=== PATIENT | female | born 1965 | race Caucasian/White ===

== ENCOUNTER 2018-02-21 00:56 | Emergency (ER) | payer BC ==
[2018-02-21] MEDS ORDERED: TORAdol 30 mg Injection IM ONE (01:23)
[2018-02-21] MEDS ORDERED: Adacel Vial IM ONE ×2 (01:23→01:36)
[2018-02-21 01:28] VITALS: BP 162/93; PULSE 69; O2SAT 99
--- NOTE | 2018-02-21 01:29 | ERPHSYRPT ---
- History of Present Illness Time Seen by Provider: 02/21/18 01:23 Source: patient Exam Limitations: no limitations Physician History: The patient is a 52-year-old female with her daughter complaining that she fell when she missed a step at a restaurant in [place] earlier this evening. She hurt her right foot and her left knee. She then went to watch a play and came back to the restaurant to tell him about the fall. The restaurant wanted her to be seen at a local [place] ER but the patient drove to her home town to be in the ER here. She did not hit her head. She did not lose consciousness. Her past medical history is unremarkable. Her last tetanus vaccination was more than 5 years ago. Occurred: hours ago (6) Reason for Fall: tripped, fell from standing pos Injuries/Pain Location: lower extremity (right foot, left knee) Loss of Consciousness: no loss of consciousness Quality: aching Severity of Pain-Max: moderate Severity of Pain-Current: moderate Modifying Factors: Improves With: pain medication (tylenol) Associated Symptoms (Fall): trouble walking - Review of Systems Constitutional: No Fever, No Chills Eyes: No Symptoms Ears, Nose, & Throat: No Symptoms Respiratory: No Cough, No Dyspnea Cardiac: No Chest Pain, No Edema, No Syncope Abdominal/Gastrointestinal: No Abdominal Pain, No Nausea, No Vomiting, No Diarrhea Genitourinary Symptoms: No Dysuria Musculoskeletal: Fall, Injury Skin: No Rash Neurological: No Dizziness, No Focal Weakness, No Sensory Changes Psychological: No Symptoms Endocrine: No Symptoms Hematologic/Lymphatic: No Symptoms Immunological/Allergic: No Symptoms All Other Systems: Reviewed and Negative - Nursing Vital Signs Nursing Vital Signs: Initial Vital Signs Temperature 98.0 F 02/21/18 01:16 Pulse Rate 69 02/21/18 01:16 Respiratory Rate 16 02/21/18 01:16 Blood Pressure 162/93 02/21/18 01:16 O2 Sat by Pulse Oximetry 99 02/21/18 01:16 Pain Scale Pain Intensity 7 - [place] Coma Score Best Eye Response ([place]): (4) open spontaneously Best Verbal Response ([place]): (5) oriented Best Motor Response ([place]): (6) obeys commands [place] Total: 15 - Physical Exam General Appearance: no apparent distress, alert Head Injury: no evidence of injury Eye Exam: PERRL/EOMI ENT Exam: airway nml Neck Exam: normal inspection, No tenderness Respiratory/Chest Exam: normal breath sounds, No chest tenderness, No respiratory distress Cardiovascular Exam: normal heart sounds, regular rate/rhythm Gastrointestinal Exam: soft, No tenderness, No distention, No guarding, No ecchymosis Rectal Exam: not done Back Exam: normal inspection, No vertebral tenderness Extremity Exam: normal range of motion, pelvis stable, evidence of injury (left knee; right foot), swelling (right foot; left knee), tenderness (right foot; left knee), No deformities Neurologic Exam: alert, oriented x 3, cooperative, sensation nml, No motor deficits Skin Exam: abrasion (left knee), ecchymosis (right foot) SpO2 Interpretation: normal - Radiology Exams Right Foot X-ray Interpretation: Interpreted by me, Negative, No Fracture Left Knee X-ray Interpretation: Interpreted by me, Negative, No Fracture, Other (arthritis ) Ordered Tests: Active Orders 24 hr Category Date Time Status Cold Application STAT Care 02/21/18 01:30 Active FOOT (MINIMUM 3 VIEWS) Stat Exams 02/21/18 01:23 Ordered KNEE (3 VIEWS) Stat Exams 02/21/18 01:24 Ordered Medication Summary Discontinued Medications Generic Name Dose Route Start Last Admin Trade Name Freq PRN Reason Stop Dose Admin Diphtheria/Tetanus/Acell Pertussis 0.5 ml 02/21/18 01:23 Adacel Vial IM 02/21/18 01:24 .ONCE ONE Diphtheria/Tetanus/Acell Pertussis Confirm 02/21/18 01:36 Adacel Vial Administered 02/21/18 01:37 Dose 0.5 ml IM .STK-MED ONE Ketorolac Tromethamine 60 mg 02/21/18 01:23 Toradol 30 Mg Injection IM 02/21/18 01:24 STAT ONE Ketorolac Tromethamine Confirm 02/21/18 01:35 Toradol 30 Mg Injection Administered 02/21/18 01:36 Dose 60 mg .ROUTE .STK-MED ONE - Progress Progress: improved Counseled pt/family regarding: rad results - Departure Time of Disposition: 01:48 Departure Disposition: Home Clinical Impression: Multiple contusions Condition: Stable Critical Care Time: No Referrals: CHARLI DE LA O [Primary Care Provider] - Additional Instructions: You have a contusion of your right foot and left knee. You were given Toradol 60 mg by IM and a tetanus vaccination in the ER. Continue to ice the foot and knee for 15 minutes 3 times a day for the next 2 or 3 days. Take Tylenol and ibuprofen as needed. Follow-up next week if the condition has not improved.
[2018-02-21] MEDS ORDERED: TORAdol 30 mg Injection ONE (01:35)
--- NOTE | 2018-02-21 08:57 | XRAY ---
Indication: Pain following fall. Comparison: None 3 views of the left knee demonstrates mild/moderate tricompartmental degenerative changes, small nonspecific suprapatellar effusion, and anterior soft tissue swelling. No other bony, articular, or soft tissue abnormalities.
--- NOTE | 2018-02-21 08:59 | XRAY ---
Indication: Pain following fall. Comparison: None 3 nonweightbearing views of the right foot demonstrates small heel spurs and mild soft tissue swelling adjacent to the 5th MTP. No other bony, articular, or soft tissue abnormalities.
== END 2018-02-21 02:14 | disposition home or self-care (01) ==
LOC: ED 00:56
DX: S90.31XA Contusion of right foot, initial encounter (principal); S80.02XA Contusion of left knee, initial encounter; M79.671 Pain in right foot; M25.562 Pain in left knee; W17.89XA Other fall from one level to another, initial encounter; Y93.9 Activity, unspecified; Y92.511 Restaurant or cafe as the place of occurrence of the external cause
CPT/HCPCS: 73562; 73630; 90471; 90715; 96372; 99283; 99284; J1885

== ENCOUNTER 2020-03-23 12:26 | Emergency (ER) | payer BC ==
[2020-03-23 12:46] VITALS: O2SAT 98
[2020-03-23] MEDS ORDERED: TYLENOL 325 MG PO STA (12:48)
[2020-03-23] MEDS ORDERED: TYLENOL 325 MG ONE (12:51)
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
[2020-03-23 13:30] VITALS: BP 159/89
[2020-03-23 13:53] VITALS: PULSE 86
== END 2020-03-23 14:00 | disposition home or self-care (01) ==
LOC: ED 12:26
DX: V89.2XXA Person injured in unspecified motor-vehicle accident, traffic, initial encounter (principal); Y93.89 Activity, other specified; Y92.488 Other paved roadways as the place of occurrence of the external cause; I10 Essential (primary) hypertension
CPT/HCPCS: 71045; 73610; 99284; A9270-GY

== ENCOUNTER 2021-03-31 15:47 | Emergency (ER) | payer BC ==
--- NOTE | 2021-03-31 15:50 | ERPHSYRPT ---
- History of Present Illness Time Seen by Provider: 03/31/21 15:49 Historian: patient, family Exam Limitations: no limitations Physician History: This is a 56-year-old white female who has a history of hypertension and presents with 2-day history of abdominal pain that initially was in her back and left upper quadrant with radiation to her left shoulder. She had associated nausea and vomiting initially. She then sought medical evaluation yesterday by [facility]. They had drawn some labs and did a plain x-ray which did not show anything acute. They provided the patient with a Zofran prescription which did help prevent vomiting and lessened her nausea but the nausea is still present. Patient has a decreased appetite. Today, her pain is primarily on the right side of her abdomen mostly in the right upper quadrant with radiation into the right flank. Patient has never had anything like this before. She denies chest pain and she denies shortness of breath. Patient states there is a dull achy pain that is constant. With deep breath or palpation the pain in the same area becomes sharp. Patient still has her gallbladder in place as well as her append ix. She has not had any hematemesis. She has had no dysuria or hematuria. She has not had any bright red blood per rectum or any dark tarry stools. Timing/Duration: day(s) (2), worse Activities at Onset: none Quality: aching, sharpness Abdominal Pain Onset Location: RUQ Pain Radiation: flank (Right) Severity of Pain-Max: moderate Severity of Pain-Current: moderate Associated Symptoms: loss of appetite, nausea, vomiting, No chest pain, No shortness of breath Previous symptoms: no prior history, recently seen (At urgent care center), recently treated (At urgent care center) Allergies/Adverse Reactions: No Known Drug Allergies Allergy (Verified 03/23/20 12:46) Home Medications: hydroCHLOROthiazide [Hydrochlorothiazide] 12.5 mg PO DAILY 03/23/20 [History] Losartan/Hydrochlorothiazide [Losartan-Hctz 50-12.5 mg Tab] 1 each PO DAILY 03/31/21 [History] Ondansetron ODT 4 MG [Zofran Odt 4 mg] 4 mg PO STAT 03/31/21 [History] Hx Tetanus, Diphtheria Vaccination/Date Given: Yes Hx Influenza Vaccination/Date Given: Yes Hx Pneumococcal Vaccination/Date Given: No Travel Risk - International Travel Have you traveled outside of the country in past 3 weeks: No - Coronavirus Screening Are you exhibiting any of the following symptoms?: No Close contact with a COVID-19 positive Pt in past 14-21 Days: No - Review of Systems Constitutional: No Symptoms Eyes: No Symptoms Ears, Nose, & Throat: No Symptoms Respiratory: No Symptoms Cardiac: No Symptoms Abdominal/Gastrointestinal: Abdominal Pain, Nausea, Vomiting Genitourinary Symptoms: No Symptoms Musculoskeletal: No Symptoms Skin: No Symptoms Neurological: No Symptoms Psychological: No Symptoms Endocrine: No Symptoms Hematologic/Lymphatic: No Symptoms Immunological/Allergic: No Symptoms All Other Systems: Reviewed and Negative - Past Medical History Pertinent Past Medical History: Yes Cardiac History: Hypertension Female Reproductive Disorders: Other Other Medical History: endometrial CA - Past Surgical History Past Surgical History: Yes Gastrointestinal: Exploratory Laparoscopy Female Surgical History: Hysterectomy - Social History Smoking Status: Never smoker Exposure to second hand smoke: No Drug Use: none Patient Lives Alone: No - Nursing Vital Signs Nursing Vital Signs: Initial Vital Signs Temperature 97.9 F 03/31/21 15:55 Pulse Rate 83 03/31/21 15:55 Respiratory Rate 19 03/31/21 15:55 Blood Pressure 139/78 03/31/21 15:55 O2 Sat by Pulse Oximetry 98 03/31/21 15:55 Pain Scale Pain Intensity 4 - Physical Exam General Appearance: no apparent distress, alert, anxiety Eye Exam: PERRL/EOMI, eyes nml inspection Ears, Nose, Throat Exam: normal ENT inspection, moist mucous membranes Neck Exam: normal inspection, non-tender, supple, full range of motion Respiratory Exam: normal breath sounds, lungs clear, airway intact, No chest tenderness, No respiratory distress Cardiovascular Exam: regular rate/rhythm, normal heart sounds, normal peripheral pulses Gastrointestinal/Abdomen Exam: soft, normal bowel sounds, tenderness (Right upper quadrant), guarding (Right upper quadrant), No rebound Pelvic Exam: not done Rectal Exam: not done Back Exam: normal inspection, normal range of motion, CVA tenderness (Right side), No vertebral tenderness Extremity Exam: normal inspection, normal range of motion, pelvis stable Neurologic Exam: alert, oriented x 3, cooperative, patient support specialist II-XII nml as tested, normal mood/affect, nml cerebellar function, nml station & gait, sensation nml Skin Exam: normal color, warm, dry Lymphatic Exam: No adenopathy SpO2 Interpretation: normal O2 Delivery: Room Air - Course Nursing assessment & vital signs reviewed: Yes Ordered Tests: Active Orders 24 hr Category Date Time Status IV Insertion STAT Care 03/31/21 16:06 Active ABDOMEN AND PELVIS W/0 CONTRAS [CT] Stat Exams 03/31/21 16:26 Completed AMYLASE Stat Lab 03/31/21 16:49 Completed BLOOD CULTURE Stat Lab 03/31/21 16:49 Received CBC W DIFF Stat Lab 03/31/21 16:49 Completed CMP Stat Lab 03/31/21 16:49 Completed CULTURE,URINE Stat Lab 03/31/21 16:51 Received LIPASE Stat Lab 03/31/21 16:49 Completed Lactic Acid Stat Lab 03/31/21 16:49 Completed UA W/RFX UR CULTURE Stat Lab 03/31/21 16:51 Completed Medication Summary Generic Name Dose Route Start Last Admin Trade Name Freq PRN Reason Stop Dose Admin Levofloxacin/Dextrose 500 mg in 100 mls @ 100 mls/hr 03/31/21 17:53 03/31/21 18:17 Levofloxacin 500mg/100ml D5w IV 03/31/21 18:52 100 mls/hr STAT STA 100 mls/hr Administration Discontinued Medications Generic Name Dose Route Start Last Admin Trade Name Freq PRN Reason Stop Dose Admin Hydromorphone HCl 1 mg 03/31/21 16:06 03/31/21 16:21 Hydromorphone 1 Mg/Ml Injection IV 03/31/21 16:07 1 mg STAT ONE Administration Hydromorphone HCl Confirm 03/31/21 16:20 Hydromorphone 1 Mg/Ml Injection Administered 03/31/21 16:21 Dose 1 mg .ROUTE .STK-MED ONE Sodium Chloride 1,000 mls @ 999 mls/hr 03/31/21 16:11 03/31/21 18:24 Sodium Chloride 0.9% 1000 Ml IV 03/31/21 17:11 Infused .Q1H1M STA Infusion Sodium Chloride Confirm 03/31/21 16:20 Sodium Chloride 0.9% 1000 Ml Administered 03/31/21 16:21 Dose 1,000 mls @ ud .ROUTE .STK-MED ONE Levofloxacin/Dextrose Confirm 03/31/21 18:15 Levofloxacin 500mg/100ml D5w Administered 03/31/21 18:16 Dose 500 mg in 100 mls @ ud IV .STK-MED ONE Ondansetron HCl 4 mg 03/31/21 16:06 03/31/21 16:21 Zofran 4 Mg/2 Ml Vial IV 03/31/21 16:07 4 mg STAT ONE Administration Ondansetron HCl Confirm 03/31/21 16:20 Zofran 4 Mg/2 Ml Vial Administered 03/31/21 16:21 Dose 4 mg .ROUTE .STK-MED ONE Lab/Rad Data: Laboratory Result Diagrams 03/31/21 16:49 03/31/21 16:49 Laboratory Results 03/31/21 03/31/21 03/31/21 Range/Units 16:51 16:49 16:49 WBC (4.0-10.5) K/mm3 RBC (4.1-5.4) M/mm3 Hgb (12.0-16.0) gm/dl Hct (35-47) % MCV (78-100) fl MCH (26-32) pg MCHC (32-36) g/dl RDW (11.5-14.0) % Plt Count (150-450) K/mm3 MPV (7.5-11.0) fl Gran % (36.0-66.0) % Eos # (Auto) (0-0.5) Absolute Lymphs (auto) (1.0-4.6) Absolute Monos (auto) (0.0-1.3) Lymphocytes % (24.0-44.0) % Monocytes % (0.0-12.0) % Eosinophils % (0.00-5.0) % Basophils % (0.0-0.4) % Absolute Granulocytes (1.4-6.9) Basophils # (0-0.4) Sodium 134 L (137-145) mmol/L Potassium 3.7 (3.5-5.1) mmol/L Chloride 99 (98-107) mmol/L Carbon Dioxide 26 (22-30) mmol/L Anion Gap 12.6 (5-15) MEQ/L BUN 15 (7-17) mg/dL Creatinine 0.95 (0.52-1.04) mg/dL Estimated GFR > 60.0 ML/MIN Glucose 100 (74-106) mg/dL Lactic Acid 0.9 (0.4-2.0) Calcium 8.7 (8.4-10.2) mg/dL Total Bilirubin 2.50 H (0.2-1.3) mg/dL AST 23 (14-36) U/L ALT 16 (0-35) U/L Alkaline Phosphatase 86 (38-126) U/L Serum Total Protein 7.0 (6.3-8.2) g/dL Albumin 4.1 (3.5-5.0) g/dL Amylase 53 (30-110) U/L Lipase 68 (23-300) U/L Urine Color YELLOW (YELLOW) Urine Appearance SLIGHTLY CLOUDY (CLEAR) Urine pH 5.0 (5-6) Ur Specific [place] 1.026 (1.005-1.025) Urine Protein 30 (Negative) Urine Ketones MODERATE (NEGATIVE) Urine Blood MODERATE (0-5) [place]dom[place]/ul Urine Nitrite NEGATIVE (NEGATIVE) Urine Bilirubin NEGATIVE (NEGATIVE) Urine Urobilinogen 2 (0-1) mg/dL Ur Leukocyte Esterase LARGE (NEGATIVE) Urine WBC (Auto) 26-50 (0-5) /HPF Urine RBC (Auto) 3-5 (0-2) /HPF U Epithel Cells (Auto) RARE (FEW) /HPF Urine Bacteria (Auto) NONE (NEGATIVE) /HPF Amorphous Crystals FEW (NEGATIVE) /HPF Urine Mucus (Auto) SLIGHT (NEGATIVE) /HPF Urine Culture Reflexed YES (NO) Urine Glucose NEGATIVE (NEGATIVE) mg/dL 03/31/21 Range/Units 16:49 WBC 12.6 H (4.0-10.5) K/mm3 RBC 3.99 L (4.1-5.4) M/mm3 Hgb 12.2 (12.0-16.0) gm/dl Hct 38.5 (35-47) % MCV 96.5 (78-100) fl MCH 30.6 (26-32) pg MCHC 31.7 L (32-36) g/dl RDW 13.0 (11.5-14.0) % Plt Count 226 (150-450) K/mm3 MPV 9.5 (7.5-11.0) fl Gran % 84.0 H (36.0-66.0) % Eos # (Auto) 0.01 (0-0.5) Absolute Lymphs (auto) 0.99 L (1.0-4.6) Absolute Monos (auto) 0.98 (0.0-1.3) Lymphocytes % 7.9 L (24.0-44.0) % Monocytes % 7.8 (0.0-12.0) % Eosinophils % 0.1 (0.00-5.0) % Basophils % 0.2 (0.0-0.4) % Absolute Granulocytes 10.60 H (1.4-6.9) Basophils # 0.02 (0-0.4) Sodium (137-145) mmol/L Potassium (3.5-5.1) mmol/L Chloride (98-107) mmol/L Carbon Dioxide (22-30) mmol/L Anion Gap (5-15) MEQ/L BUN (7-17) mg/dL Creatinine (0.52-1.04) mg/dL Estimated GFR ML/MIN Glucose (74-106) mg/dL Lactic Acid (0.4-2.0) Calcium (8.4-10.2) mg/dL Total Bilirubin (0.2-1.3) mg/dL AST (14-36) U/L ALT (0-35) U/L Alkaline Phosphatase (38-126) U/L Serum Total Protein (6.3-8.2) g/dL Albumin (3.5-5.0) g/dL Amylase (30-110) U/L Lipase (23-300) U/L Urine Color (YELLOW) Urine Appearance (CLEAR) Urine pH (5-6) Ur Specific [place] (1.005-1.025) Urine Protein (Negative) Urine Ketones (NEGATIVE) Urine Blood (0-5) Baldomero/ul Urine Nitrite (NEGATIVE) Urine Bilirubin (NEGATIVE) Urine Urobilinogen (0-1) mg/dL Ur Leukocyte Esterase (NEGATIVE) Urine WBC (Auto) (0-5) /HPF Urine RBC (Auto) (0-2) /HPF U Epithel Cells (Auto) (FEW) /HPF Urine Bacteria (Auto) (NEGATIVE) /HPF Amorphous Crystals (NEGATIVE) /HPF Urine Mucus (Auto) (NEGATIVE) /HPF Urine Culture Reflexed (NO) Urine Glucose (NEGATIVE) mg/dL - Progress Progress: improved, pain not gone completely, re-examined Progress Note: 06/18/21 17:34 CAT scan of the abdomen pelvis without contrast shows abnormally distended gallbladder with wall thickening and pericholecystic fluid. Rule out acalculous cholecystitis. 03/31/21 18:32 Medical decision making: This patient has an elevated white count that is essentially the same as a white blood cell count that was performed over 24 hours ago. After pain medicine and antiemetics, the patient states she is feeling much better. Patient has an elevated bilirubin at 2.5 but the remainder of her liver function tests and amylase and lipase are normal. We had a discussion and came to a joint decision of providing the patient with oral antibiotics, oral pain medicine and antiemetic prescription and allow her to be discharged to home with a follow-up ultrasound of the gallbladder to be performed on 04/03/2021. Patient was told to return to the emergency department if her symptoms worsen. Counseled pt/family regarding: lab results, diagnosis, need for follow-up, rad results - Departure Departure Disposition: Home Clinical Impression: Acalculous cholecystitis Condition: Stable Critical Care Time: No Referrals: CHARLI DE LA O [Primary Care Provider] - Additional Instructions: Drink plenty of clear liquids. Avoid fatty greasy spicy foods. Take your medications as prescribed. Return to the emergency department if symptoms worsen. Return to the hospital radiology department on 04/03/2021 to obtain a gallbladder ultrasound. Cancel your gallbladder ultrasound that was ordered for 04/05/2021. Prescriptions: Hydrocodone/APAP 5/325 [[place] 5/325 mg] 1 each PO Q6H PRN PRN #9 tablet MDD 3 PRN Reason: Pain Ondansetron ODT 4 MG [Zofran Odt 4 mg] 4 mg PO Q6H PRN PRN #10 tab.rapdis PRN Reason: Vomiting Ciprofloxacin [Cipro 500 MG] 500 mg PO BID #14 tablet
[2021-03-31] MEDS ORDERED: Hydromorphone 1 mg/ml Injection IV ONE (16:06)
[2021-03-31] MEDS ORDERED: Zofran 4 MG/2 ML VIAL IV ONE (16:06)
[2021-03-31] MEDS ORDERED: Sodium Chloride 0.9% 1000 ML 1,000 ML IV STA (16:11)
[2021-03-31] MEDS ORDERED: Sodium Chloride 0.9% 1000 ML 1,000 ML ONE (16:20)
[2021-03-31] MEDS ORDERED: Zofran 4 MG/2 ML VIAL ONE (16:20)
[2021-03-31] MEDS ORDERED: Hydromorphone 1 mg/ml Injection ONE (16:20)
--- NOTE | 2021-03-31 17:06 | XRAY ---
Indication: Right upper quadrant pain. Nausea and vomiting. Multiple contiguous axial images obtained through the abdomen and pelvis without contrast. Comparison: None Lung bases demonstrate minimal dependent atelectasis. No infiltrate or effusion. Heart not enlarged. Noncontrasted stomach and bowel loops appear nonobstructed. Normal appendix. Abnormally distended gallbladder with wall thickening and pericholecystic fluid but no gallstones. Acalculous cholecystitis is of primary concern. Tiny pelvic free fluid but no walled off fluid collection or free air. Previous hysterectomy. Remaining liver, pancreas, spleen, adrenal glands, kidneys, ureters, and bladder are unremarkable for noncontrast exam. Minimal aortoiliac calcifications without AAA. Osseous structures intact. Impression: Abnormal distended gallbladder with wall thickening and pericholecystic/pelvic fluid. Rule out acalculous cholecystitis.
[2021-03-31 17:20] LABS: ALBUMIN 4.1 g/dL (3.5-5.0); ALKALINE PHOSPHATASE 86 U/L (38-126); AMYLASE 53 U/L (30-110); ANION GAP 12.6 MEQ/L (5-15); BLOOD UREA NITROGEN 15 mg/dL (7-17); CHLORIDE 99 mmol/L (98-107); Calcium 8.7 mg/dL (8.4-10.2); Carbon Dioxide 26 mmol/L (22-30); Creatinine 1 0.95 mg/dL (0.52-1.04); EST GLOMERULAR FILTRATION RATE > 60.0 ML/MIN; Glucose 100 mg/dL (74-106); LIPASE 68 U/L (23-300); Potassium 3.7 mmol/L (3.5-5.1); SGOT/AST 23 U/L (14-36); SGPT/ALT 16 U/L (0-35); SODIUM 134 mmol/L (137-145)
[2021-03-31 17:33] LABS: Amourphous Crystal FEW /HPF (NEGATIVE); Appearance SLIGHTLY CLOUDY (CLEAR); Bilirubin NEGATIVE (NEGATIVE); Blood MODERATE Ery/ul (0-5); Epithelial Cells RARE /HPF (FEW); Glucose NEGATIVE (NEGATIVE); Ketones MODERATE (NEGATIVE); Leukocyte Esterase LARGE (NEGATIVE); Mucus SLIGHT /HPF (NEGATIVE); Nitrite NEGATIVE (NEGATIVE); Protein,Urine Dip 30 (Negative); Specific Gravity 1.026 (1.005-1.025); Urobilinogen 2 mg/dL (0-1); WBC 26-50 /HPF (0-5)
[2021-03-31 17:52] LABS: BASOPHIL % 0.2 % (0.0-0.4); Basophil (Absolute #) 0.02 (0-0.4); Eosinophil % 0.1 % (0.00-5.0); Eosinophil (Absolute #) 0.01 (0-0.5); Hematocrit 38.5 % (35-47); Hemoglobin 12.2 gm/dl (12.0-16.0); Lymphocyte (Absolute #) 0.99 (1.0-4.6); Lymphocytes % 7.9 % (24.0-44.0); Mean Cell Volume 96.5 fl (78-100); Mean Corpuscular Hemoglobin 30.6 pg (26-32); Mean Corpuscular Hgb Concent. 31.7 g/dl (32-36); Mean Platelet Volume 9.5 fl (7.5-11.0); Monocyte (Absolute #) 0.98 (0.0-1.3); Monocytes % 7.8 % (0.0-12.0); Platelet Count 226 K/mm3 (150-450); Red Blood Count 3.99 M/mm3 (4.1-5.4); White Blood Count 12.6 K/mm3 (4.0-10.5)
[2021-03-31] MEDS ORDERED: Levofloxacin 500MG/100ML D5W 500 MG/100 ML BAG IV STA (17:53)
[2021-03-31] MEDS ORDERED: Levofloxacin 500MG/100ML D5W 500 MG/100 ML BAG IV ONE (18:15)
[2021-03-31 19:31] VITALS: BP 116/75; PULSE 97; O2SAT 98
== END 2021-03-31 19:31 | disposition home or self-care (01) ==
LOC: ED 15:47
DX: K81.9 Cholecystitis, unspecified (principal); Z79.899 Other long term (current) drug therapy
CPT/HCPCS: 36000; 36415; 74176; 80053; 81001; 82150; 83605; 83690; 85025; 87040; 87086; 96360; 96365; 96374; 96375; 99284; J1170; J1956; J2405

== ENCOUNTER 2021-04-03 09:29 | Observation (INO) | payer BC ==
[2021-04-03] MEDS ORDERED: Hydromorphone 1 mg/ml Injection IV PRN (11:39)
[2021-04-03] MEDS ORDERED: Zofran 4 MG/2 ML VIAL IV PRN (11:39)
[2021-04-03 12:28] LABS: BASOPHIL % 0.4 % (0.0-0.4); Basophil (Absolute #) 0.03 (0-0.4); Eosinophil % 0.7 % (0.00-5.0); Eosinophil (Absolute #) 0.05 (0-0.5); Hematocrit 37.2 % (35-47); Lymphocyte (Absolute #) 1.03 (1.0-4.6); Lymphocytes % 15.3 % (24.0-44.0); Mean Cell Volume 94.9 fl (78-100); Mean Corpuscular Hemoglobin 30.6 pg (26-32); Mean Corpuscular Hgb Concent. 32.3 g/dl (32-36); Mean Platelet Volume 9.7 fl (7.5-11.0); Monocyte (Absolute #) 0.54 (0.0-1.3); Neutrophil % 75.6 % (36.0-66.0); Platelet Count 298 K/mm3 (150-450); Red Blood Count 3.92 M/mm3 (4.1-5.4); Red Cell Distribution Width 12.7 % (11.5-14.0); White Blood Count 6.8 K/mm3 (4.0-10.5)
[2021-04-03 12:43] LABS: ALBUMIN 4.2 g/dL (3.5-5.0); ALKALINE PHOSPHATASE 131 U/L (38-126); ANION GAP 11.3 MEQ/L (5-15); BLOOD UREA NITROGEN 12 mg/dL (7-17); CHLORIDE 98 mmol/L (98-107); Calcium 9.4 mg/dL (8.4-10.2); Carbon Dioxide 30 mmol/L (22-30); Creatinine 1 0.97 mg/dL (0.52-1.04); EST GLOMERULAR FILTRATION RATE > 60.0 ML/MIN; Glucose 97 mg/dL (74-106); LIPASE 93 U/L (23-300); Potassium 3.3 mmol/L (3.5-5.1); SGOT/AST 35 U/L (14-36); SGPT/ALT 32 U/L (0-35); SODIUM 136 mmol/L (137-145); Total Protein 7.5 g/dL (6.3-8.2)
[2021-04-03] MEDS: Zosyn 3.375 GM Vial 3.375 GM in Sodium Chloride 100ML MINI-BAG PLUS 100 ML IV SCH ×3 (12:52→23:48)
[2021-04-03] MEDS: Sodium Chloride 0.9% W/ 20 mEq KCl/LITER 1,000 ML IV SCH (12:52)
--- NOTE | 2021-04-03 13:04 | PCM.HP ---
History of Present Illness - Chief Complaint Chief Complaint: acute cholecystitis History of Present Illness: is a 56 year old female who was in quick care 4 days ago, then the ER 3 days ago. She has been experiencing upper abdominal pain with radiation through to her back and nausea and vomiting for the last 5-6 days, she has not been febrile but her pain has been severe. she had a ct scan in the ER with thickening of the gallbladder wall and stones, this morning ultrasound sugge stive of cholecystitis. She was direct admitted after review of labs with elevated white count and elevation of her bilirubin. she has a history of hypertension but no cardiac history. - Review of Systems Constitutional: No Fever, No Chills Abdominal/Gastrointestinal: Abdominal Pain, Nausea, Vomiting Genitourinary Symptoms: No Dysuria Musculoskeletal: Back Pain Skin: No Rash All Other Systems: Reviewed and Negative Medications & Allergies Home Medications: Home Medication List hydroCHLOROthiazide [Hydrochlorothiazide] 12.5 mg PO DAILY 03/23/20 [History Confirmed 03/31/21] Ciprofloxacin [Cipro 500 MG] 500 mg PO BID #14 tablet 03/31/21 [Rx] Hydrocodone/APAP 5/325 [[place] 5/325 mg] 1 each PO Q6H PRN PRN #9 tablet MDD 3 03/31/21 [Rx] Losartan/Hydrochlorothiazide [Losartan-Hctz 50-12.5 mg Tab] 1 each PO DAILY 03/31/21 [History Confirmed 03/31/21] Ondansetron ODT 4 MG [Zofran Odt 4 mg] 4 mg PO Q6H PRN PRN #10 tab.rapdis 03/31/21 [Rx] Ondansetron ODT 4 MG [Zofran Odt 4 mg] 4 mg PO STAT 03/31/21 [History Confirmed 03/31/21] Allergies/Adverse Reactions: Allergies Allergy/AdvReac Type Severity Reaction Status Date / Time No Known Drug Allergies Allergy Verified 03/23/20 12:46 - Past Medical History Past Medical History: Yes Cardiac History: Hypertension Reproductive Disorders: Other Comment: endometrial CA - Past Surgical History Past Surgical History: Yes GI Surgical History: Exploratory Laparoscopy Musculskeletal Surgical Hx: Orthopedic Surgery Female Surgical History: Hysterectomy Other Surgical History: Jul 2020 R ankle - plate and pins remain - Social History Smoking Status: Never smoker Exposure to second hand smoke: No Alcohol: None Drug Use: none - Physical Exam General Appearance: no apparent distress, alert Neurologic Exam: alert, oriented x 3, cooperative Respiratory Exam: normal breath sounds, lungs clear, No respiratory distress Gastrointestinal/Abdomen Exam: soft, tenderness (right upper quad) Extremity Exam: normal inspection, normal range of motion, pelvis stable Skin Exam: normal color, warm, dry, No rash Results - Labs Lab/Micro Results: Lab Results-Last 24 Hours 04/03/21 04/03/21 04/03/21 Range/Units 11:34 12:00 12:00 WBC 6.8 (4.0-10.5) K/mm3 RBC 3.92 L (4.1-5.4) M/mm3 Hgb 12.0 (12.0-16.0) gm/dl Hct 37.2 (35-47) % MCV 94.9 (78-100) fl MCH 30.6 (26-32) pg MCHC 32.3 (32-36) g/dl RDW 12.7 (11.5-14.0) % Plt Count 298 (150-450) K/mm3 MPV 9.7 (7.5-11.0) fl Gran % 75.6 H (36.0-66.0) % Eos # (Auto) 0.05 (0-0.5) Absolute Lymphs (auto) 1.03 (1.0-4.6) Absolute Monos (auto) 0.54 (0.0-1.3) Lymphocytes % 15.3 L (24.0-44.0) % Monocytes % 8.0 (0.0-12.0) % Eosinophils % 0.7 (0.00-5.0) % Basophils % 0.4 (0.0-0.4) % Absolute Granulocytes 5.10 (1.4-6.9) Basophils # 0.03 (0-0.4) Sodium 136 L (137-145) mmol/L Potassium 3.3 L (3.5-5.1) mmol/L Chloride 98 (98-107) mmol/L Carbon Dioxide 30 (22-30) mmol/L Anion Gap 11.3 (5-15) MEQ/L BUN 12 (7-17) mg/dL Creatinine 0.97 (0.52-1.04) mg/dL Estimated GFR > 60.0 ML/MIN Glucose 97 (74-106) mg/dL Calcium 9.4 (8.4-10.2) mg/dL Total Bilirubin 1.00 (0.2-1.3) mg/dL AST 35 (14-36) U/L ALT 32 (0-35) U/L Alkaline Phosphatase 131 H (38-126) U/L Serum Total Protein 7.5 (6.3-8.2) g/dL Albumin 4.2 (3.5-5.0) g/dL Lipase 93 (23-300) U/L SARS-CoV-2 (PCR) NEGATIVE (NEGATIVE) Assessment/Plan (1) Acute cholecystitis Current Visit: Yes Status: Acute Assessment & Plan: patient has been NPO all day today other than some water this morning. she has been started on IV zosyn and fluids analgesics and antiemetics are ordered. surgery consult is pending. Code(s): K81.0 - ACUTE CHOLECYSTITIS
[2021-04-03] MEDS ORDERED: Lactated Ringers 1,000 ML IV SCH (14:30)
[2021-04-03] MEDS ORDERED: Decadron 4 MG INJ ONE (14:32)
[2021-04-03] MEDS ORDERED: BRIDION 200MG/2ML IV ONE (14:32)
[2021-04-03] MEDS ORDERED: TORAdol 30 mg Injection ONE (14:32)
[2021-04-03] MEDS ORDERED: Zofran 4 MG/2 ML VIAL ONE (14:32)
[2021-04-03] MEDS ORDERED: Xylocaine-Mpf 2% 5 Ml Vial ONE (14:32)
[2021-04-03] MEDS ORDERED: DIPRIVAN 200 MG/20 ML IV ONE (14:32)
[2021-04-03] MEDS ORDERED: Zemuron 100 MG/10 ML ONE (14:32)
[2021-04-03] MEDS ORDERED: SUBLIMAZE 100 MCG/2 ML ONE ×2 (14:33→16:19)
[2021-04-03] MEDS ORDERED: Sensorcaine 0.25% 10 ML ONE (14:36)
[2021-04-03] MEDS ORDERED: MEFOXIN 2 GM PREMIX** 2 GM/50 ML ML IV SCH (15:00)
[2021-04-03] MEDS ORDERED: Hydromorphone 1 mg/ml Injection ONE (16:19)
[2021-04-03] MEDS ORDERED: MORPHINE SULFATE 10 MG/ML ONE (16:41)
[2021-04-03] MEDS: MORPHINE SULFATE 4 MG INJ IV PRN (20:45)
[2021-04-04] MEDS: MORPHINE SULFATE 4 MG INJ IV PRN (00:04)
[2021-04-04] MEDS: Sodium Chloride 0.9% W/ 20 mEq KCl/LITER 1,000 ML IV SCH ×2 (03:16→13:50)
[2021-04-04 05:17] LABS: Absolute Neutrophil Ct (ANC) 5.94 (1.4-6.9); BASOPHIL % 0.2 % (0.0-0.4); Basophil (Absolute #) 0.01 (0-0.4); Eosinophil (Absolute #) 0 (0-0.5); Hematocrit 38.2 % (35-47); Hemoglobin 11.7 gm/dl (12.0-16.0); Lymphocyte (Absolute #) 0.44 (1.0-4.6); Lymphocytes % 6.7 % (24.0-44.0); Mean Cell Volume 97.9 fl (78-100); Mean Corpuscular Hgb Concent. 30.6 g/dl (32-36); Mean Platelet Volume 9.5 fl (7.5-11.0); Monocyte (Absolute #) 0.15 (0.0-1.3); Monocytes % 2.3 % (0.0-12.0); Neutrophil % 90.8 % (36.0-66.0); Platelet Count 268 K/mm3 (150-450); Red Cell Distribution Width 12.6 % (11.5-14.0); White Blood Count 6.5 K/mm3 (4.0-10.5)
[2021-04-04 05:40] LABS: ALBUMIN 3.7 g/dL (3.5-5.0); ALKALINE PHOSPHATASE 111 U/L (38-126); ANION GAP 10.8 MEQ/L (5-15); BLOOD UREA NITROGEN 13 mg/dL (7-17); CHLORIDE 101 mmol/L (98-107); Calcium 8.8 mg/dL (8.4-10.2); Carbon Dioxide 28 mmol/L (22-30); Creatinine 1 0.85 mg/dL (0.52-1.04); EST GLOMERULAR FILTRATION RATE > 60.0 ML/MIN; Glucose 161 mg/dL (74-106); Potassium 4.5 mmol/L (3.5-5.1); SGOT/AST 32 U/L (14-36); SGPT/ALT 30 U/L (0-35); SODIUM 135 mmol/L (137-145); Total Protein 6.6 g/dL (6.3-8.2)
[2021-04-04 05:59] LABS: Slide Review 1 YES
[2021-04-04] MEDS: Zosyn 3.375 GM Vial 3.375 GM in Sodium Chloride 100ML MINI-BAG PLUS 100 ML IV SCH ×2 (06:21→14:24)
--- NOTE | 2021-04-04 09:57 | PCM.DS ---
Discharge Summary Date of Admission: 04/03/21 11:19 Admitting Physician: TEMITOPE REYNOSO Consults: Consults on Case 04/03/21 11:40 Consult Surgery ROUTINE Primary Care Provider: CHARLI DE LA O Allergies Allergies No Known Drug Allergies Allergy (Verified 03/23/20 12:46) Hospital Summary - Hospital Course Hospital Course: patient admitted with acute cholecystitis on imaging, pain and nausea and vomiting. feeling much better after surgery, has significant serosang drainage from TOMER, plans to go home with drain per patient and nursing. she is afebrile, white count is normal, she is ambulating, tolerating po and pain is well controlled today on post-op day #1 - Vitals & Intake/Output Vital Signs: Vital Signs Temperature 98.1 F 04/04/21 07:31 Pulse Rate 47 L 04/04/21 07:31 Respiratory Rate 18 04/04/21 07:31 Blood Pressure 87/57 04/04/21 07:31 O2 Sat by Pulse Oximetry 98 04/04/21 07:31 Intake & Output: Intake & Output 04/01/21 04/02/21 04/03/21 04/04/21 11:59 11:59 11:59 11:59 Intake Total 1646 Output Total 730 Balance 916 Weight 84.4 kg - Lab Result Diagrams: 04/04/21 04:31 04/04/21 04:31 Lab Results-Last 24 Hrs: Lab Results-Last 24 Hours 04/03/21 04/03/21 04/03/21 Range/Units 11:34 12:00 12:00 WBC 6.8 (4.0-10.5) K/mm3 RBC 3.92 L (4.1-5.4) M/mm3 Hgb 12.0 (12.0-16.0) gm/dl Hct 37.2 (35-47) % MCV 94.9 (78-100) fl MCH 30.6 (26-32) pg MCHC 32.3 (32-36) g/dl RDW 12.7 (11.5-14.0) % Plt Count 298 (150-450) K/mm3 MPV 9.7 (7.5-11.0) fl Gran % 75.6 H (36.0-66.0) % Eos # (Auto) 0.05 (0-0.5) Absolute Lymphs (auto) 1.03 (1.0-4.6) Absolute Monos (auto) 0.54 (0.0-1.3) Lymphocytes % 15.3 L (24.0-44.0) % Monocytes % 8.0 (0.0-12.0) % Eosinophils % 0.7 (0.00-5.0) % Basophils % 0.4 (0.0-0.4) % Absolute Granulocytes 5.10 (1.4-6.9) Basophils # 0.03 (0-0.4) Sodium 136 L (137-145) mmol/L Potassium 3.3 L (3.5-5.1) mmol/L Chloride 98 (98-107) mmol/L Carbon Dioxide 30 (22-30) mmol/L Anion Gap 11.3 (5-15) MEQ/L BUN 12 (7-17) mg/dL Creatinine 0.97 (0.52-1.04) mg/dL Estimated GFR > 60.0 ML/MIN Glucose 97 (74-106) mg/dL Calcium 9.4 (8.4-10.2) mg/dL Total Bilirubin 1.00 (0.2-1.3) mg/dL Direct Bilirubin (0.0-0.4) mg/dL AST 35 (14-36) U/L ALT 32 (0-35) U/L Alkaline Phosphatase 131 H (38-126) U/L Serum Total Protein 7.5 (6.3-8.2) g/dL Albumin 4.2 (3.5-5.0) g/dL Lipase 93 (23-300) U/L SARS-CoV-2 (PCR) NEGATIVE (NEGATIVE) Slides for Path Review 04/04/21 04/04/21 04/04/21 Range/Units 04:31 04:31 04:31 WBC 6.5 (4.0-10.5) K/mm3 RBC 3.90 L (4.1-5.4) M/mm3 Hgb 11.7 L (12.0-16.0) gm/dl Hct 38.2 (35-47) % MCV 97.9 (78-100) fl MCH 30.0 (26-32) pg MCHC 30.6 L (32-36) g/dl RDW 12.6 (11.5-14.0) % Plt Count 268 (150-450) K/mm3 MPV 9.5 (7.5-11.0) fl Gran % 90.8 H (36.0-66.0) % Eos # (Auto) 0 (0-0.5) Absolute Lymphs (auto) 0.44 L (1.0-4.6) Absolute Monos (auto) 0.15 (0.0-1.3) Lymphocytes % 6.7 L (24.0-44.0) % Monocytes % 2.3 (0.0-12.0) % Eosinophils % 0.0 (0.00-5.0) % Basophils % 0.2 (0.0-0.4) % Absolute Granulocytes 5.94 (1.4-6.9) Basophils # 0.01 (0-0.4) Sodium 135 L (137-145) mmol/L Potassium 4.5 D (3.5-5.1) mmol/L Chloride 101 (98-107) mmol/L Carbon Dioxide 28 (22-30) mmol/L Anion Gap 10.8 (5-15) MEQ/L BUN 13 (7-17) mg/dL Creatinine 0.85 (0.52-1.04) mg/dL Estimated GFR > 60.0 ML/MIN Glucose 161 H (74-106) mg/dL Calcium 8.8 (8.4-10.2) mg/dL Total Bilirubin 0.80 (0.2-1.3) mg/dL Direct Bilirubin 0.1 (0.0-0.4) mg/dL AST 32 (14-36) U/L ALT 30 (0-35) U/L Alkaline Phosphatase 111 (38-126) U/L Serum Total Protein 6.6 (6.3-8.2) g/dL Albumin 3.7 (3.5-5.0) g/dL Lipase (23-300) U/L SARS-CoV-2 (PCR) (NEGATIVE) Slides for Path Review YES Discharge Exam General Appearance: no apparent distress, alert Respiratory Exam: normal breath sounds, lungs clear, No respiratory distress Cardiovascular Exam: regular rate/rhythm, normal heart sounds Gastrointestinal/Abdomen Exam: soft, other (serosang fluid in TOMER), No tenderness, No mass Extremity Exam: normal inspection, normal range of motion Skin Exam: normal color, warm, dry Wound Assessment: Skin/Wound Assessment Wound/Incision Assessment Start: 04/03/21 16:00 Text: Status: Active Freq: Q4H Protocol: Document 04/04/21 04:00 NAOMIE (Rec: 04/04/21 04:20 NAOMIE [id number]) Wound/Incision Assessment Right Lateral Abdomen Wound Assessment Shift Assessment Wound Type Puncture Wound Stage Non Pressure Wound Dressing Status Dry & Intact Drainage Amount Moderate Drainage Description Brown Comment TOMER DRAIN GAUZE CHANGED, DRAINAGE IS STARTING TO CHANGE TO BROWN/GREEN, BILE LIKE Medial Abdomen Wound Assessment Shift Assessment Wound Type Incision Wound Stage Non Pressure Wound Dressing Status Dry & Intact Drainage Amount None Comment PRESSURE DRESSING CLEAN, DRY AND INTACT Upper Medial Abdomen Wound Assessment Shift Assessment Wound Type Incision Wound Stage Non Pressure Wound Dressing Status Dry & Intact Drainage Amount None Drainage Odor None/Absent Comment PRESSURE DRESSING CLEAN, DRY AND INTACT Right Abdomen Drain Type TOMER drain Drainage Description Brown,Green Odor None/Absent Drainage Amount (ml) 30 Wound Photo Photo Taken No Final Diagnosis/Problem List - Final Discharge Diagnosis/Problem (1) Acute cholecystitis Current Visit: Yes Status: Acute Assessment & Plan: home when ok with surgery, doing great Code(s): K81.0 - ACUTE CHOLECYSTITIS - Discharge Disposition: Home, Self-Care Condition: Stable Prescriptions: New Hydrocodone/Acetaminophen [Hydrocodone-Acetamin 5-325 mg] 1 tab PO Q4HPRN PRN #20 tablet MDD 6 PRN Reason: Pain No Action Losartan/Hydrochlorothiazide [Losartan-Hctz 50-12.5 mg Tab] 12.5 mg PO DAILY Hydrocodone/APAP 5/325 [[place] 5/325 mg] 1 each PO Q6H PRN PRN #9 tablet MDD 3 PRN Reason: Pain Ciprofloxacin [Cipro 500 MG] 500 mg PO BID #14 tablet Ondansetron ODT 4 MG [Zofran Odt 4 mg] 4 mg PO BID PRN PRN PRN Reason: Vomiting Follow up with: TEMITOPE REYNOSO MD [ACTIVE STAFF] - AISHWARYA DIAZ [COURTESY STAFF] - (Saturday04/05/21 IN [place]. WILL TAKE DRAIN OUT.)
[2021-04-04] MEDS: NORCO 5/325 MG PO PRN ×2 (10:03→14:25)
--- NOTE | 2021-04-04 12:32 | CONS ---
CONSULT DATE: 04/03/2021 HISTORY OF PRESENT ILLNESS: The patient is a 56 y/o who had a few days history of some right-sided abdominal pain. She was in the ER. Didn't have any kanwal gallstones on scan. She was released as her enzymes were okay. She had an US that showed cholelithiasis, a little bit of wall thickening, and maybe a little bit of fluid, possibly acute exacerbation of chronic cholecystitis. PAST MEDICAL HISTORY: She had some hypertension. HOME MEDICATIONS: Has been on some Cipro, hydrocodone, losartan, ondansetron. FAMILY HISTORY: Cancer and heart disease. SOCIAL HISTORY: No alcohol abuse. PAST SURGICAL HISTORY: She had a hysterectomy in the past. Her liver function tests are okay. Lipase is 131. WBC 6.8, Hgb 12, platelets 298,000. She denies any blood thinner use. REVIEW OF SYSTEMS: 14 systems reviewed. No chest pain or palpitations. Other systems negative or noncontributory other than above and per admission assessment. She does wear glasses. PHYSICAL EXAMINATION: GENERAL: No acute distress. HEENT: Sclerae nonicteric. NECK: No JVD. CHEST: Equal excursion. Nonlabored breathing. CVS: Regular rate and rhythm. ABDOMEN: Soft. Some mild tenderness in right upper quadrant. No peritoneal signs. EXTREMITIES: No significant edema. NEURO: Alert, moving extremities symmetrically. PSYCH: Appropriate mood and affect. IMPRESSION: 1. ACUTE EXACERBATION OF CHRONIC CHOLECYSTITIS/CHOLELITHIASIS. Feel patient will benefit from cholecystectomy. Risks and benefits explained in detail, but not limited to, bleeding; infection; risk of trocar injury or hernia; risk of bowel, bladder, or blood vessel injury; risk of bile leak, bile duct injury, or retained stone or sludge possibly requiring further procedures either open or endoscopic retrograde cholangiopancreatography; general risk of anesthesia, deep vein thrombosis, pulmonary embolism, or pneumonia; perioperative risks of aches, pains, bloating, constipation and/or loose stools possibly chronic in nature; possibility of no improvement in her symptoms and she may need further work-up and/or testing. She understands and agrees to the planned procedure. Will proceed with laparoscopic cholecystectomy, possible open when OR time available. Thank you for the consult.
--- NOTE | 2021-04-04 14:57 | OP ---
SURGERY DATE: 04/03/2021 SURGERY TIME: 1454 PREOPERATIVE DIAGNOSIS: 1. ACUTE EXACERBATION OF CHRONIC CHOLECYSTITIS/CHOLELITHIASIS. POSTOPERATIVE DIAGNOSIS: 1. ACUTE EXACERBATION OF CHRONIC CHOLECYSTITIS/CHOLELITHIASIS. PROCEDURE: 1. Laparoscopic cholecystectomy. SURGEON: Dr. Suhas Dowell. ANESTHESIA: General. ESTIMATED BLOOD LOSS: Minimal. INDICATIONS: As noted above. Risks and benefits explained in detail, but not limited to. Consent obtained. DESCRIPTION OF PROCEDURE AND FINDINGS: The patient was taken to the OR. General anesthesia was induced. The abdomen was prepped and draped in the usual sterile fashion. After official time-out, no disagreement in planned procedure. Transverse incision made at the supraumbilical area. Fascia grasped and pulled upward. Veress needle inserted. Tested with saline. Pneumoperitoneum accomplished insufflating from an opening pressure of 0-15. A 5 mm bladeless port and camera were inserted without difficulty followed by two 5 mm right upper quadrant ports and a 12 mm epigastric port. The gallbladder was quite distended. It had omental caking off of it. The gallbladder was mobilized upward. It was too tense to be able to grasp easily with the grasper. Therefore, Veress needle was inserted aspirating about 30-40 cc of hydrops. The gallbladder was carefully dissected from posterolateral to anterior fashion. Slowly, carefully, cystic duct/infundibular junction was slowly, carefully well skeletonized so the critical view was obtained both anteriorly and posteriorly. Once this was accomplished, the cystic duct was clipped X 3 and divided in the usual fashion. The patient had extensive inflammatory reaction. Had some smaller arteries. These were carefully isolated individually, clipped, and divided. The gallbladder was basically concreted to the liver bed. It took quite some time to slowly, carefully dissect this free. It disintegrated in one small area, but there was no evidence of any large stone spillage. The gallbladder was suctioned down freer with the suction residential roofer helper and continued the dissection. Was quite raw on the anterior edge of the liver and quite oozy. Some pinpoint cautery near the anterior edge of the liver was accomplished and a small piece of Surgicel was left at the end of the procedure in this area. Just prior to releasing the final attachments to the anterior edge of the liver, clips noted to be in placed in the cystic duct/cystic artery stumps. No signs of any active bleeding or bile leakage from the liver bed itself. The raw area that had some brief ooze earlier appeared better. A small piece of Surgicel was left over the top of it. The gallbladder was released from its final attachments, placed in the bag, and pulled up to the epigastric 12 mm fascial defect. Given the large size, she had about 2.5 cm stones, it was necessary to slightly enlarge this defect to allow the gallbladder to be pulled free. It was necessary to enlarge the skin incision too give the very large stones to allow the gallbladder to be pulled free and passed off finally. A copious amount of irrigation accomplished lateral to the liver and subhepatic space until clear. Liver bed reinspected. Clips noted to be in place in the cystic duct/cystic artery stumps. Again, the small piece of Surgicel was left on the small anterior edge of the liver and appeared to have good hemostasis now. A copious amount of irrigation accomplished lateral to the liver and subhepatic space irrigating clear. Given the extensive inflammatory reaction, TOMER drain was placed in the subhepatic space out through the lateral port incision. Secured with PDS suture. Placed to bulb suction. Pneumoperitoneum decompressed. Fascial defect in the epigastrium was closed with running 0 Vicryl. Subq irrigated out and appeared to have good hemostasis. Skin closed with 4-0 Vicryl. Drain secured with PDS suture, placed to bulb suction. 0.25% Marcaine local had been injected along each skin incision at the beginning of the procedure. There were no immediate complications. Findings were discussed with her out in the waiting area. Should the patient decide to go home later this evening, would see her back in the office either Saturday or the following Saturday for possible drain removal. If she stays in the hospital, will have to see how her labs are doing at the time of discharge.
[2021-04-04 16:34] LABS: ALBUMIN 3.6 g/dL (3.5-5.0); BILIRUBIN,TOTAL 0.5 mg/dL (0.2-1.3); Direct Bilirubin 0.1 mg/dL (0.0-0.4); Total Protein 6.4 g/dL (6.3-8.2)
[2021-04-04 17:05] VITALS: BP 99/55; PULSE 60; O2SAT 97
[2021-04-05] MEDS ORDERED: LOSARTAN PO SCH (10:00)
[2021-04-05] MEDS ORDERED: Cozaar 50 MG PO SCH (10:00)
[2021-04-05] MEDS ORDERED: [UNRECOGNIZED DRUG - OTHER] PO SCH (10:00)
[2021-04-05] MEDS ORDERED: HYDROCHLOROTHIAZIDE PO SCH (10:00)
[2021-04-05] MEDS ORDERED: hydroDIURIL 25 MG PO SCH (10:00)
== END 2021-04-04 18:25 | disposition home or self-care (01) ==
LOC: ICU 11:19 → MED SURG 11:20
PROVIDERS: ADMIT Family Medicine; ATTEND Family Medicine
DX: K80.00 Calculus of gallbladder with acute cholecystitis without obstruction (principal); Z79.899 Other long term (current) drug therapy; I10 Essential (primary) hypertension
CPT/HCPCS: 36415; 47562; 80053; 80076; 82248; 83690; 85025; 87040; G0378; U0003; J1100; J1170; J1885; J2270; J2405; J2704; J3010; A9270-GY

== ENCOUNTER 2023-11-10 18:34 | Emergency (ER) | payer BC ==
[2023-11-10 18:52] VITALS: PULSE 69; RESP 20; TEMP 97.1
--- NOTE | 2023-11-10 20:07 | ERPHSYRPT ---
- History of Present Illness Time Seen by Provider: 11/10/23 19:54 Source: patient Exam Limitations: no limitations Patient Subjective Stated Complaint: Pt states "I was at home and my back started to hurt and my left hip started to hurt and now my thigh is kind of numb." Triage Nursing Assessment: Pt presented alert and oriented X 3, skin pwd. PT ambulates with a stiff gait. Pt moaning and groaning when she ambulates. Physician History: For the past 5.5 hours pt has had constant left lower back pain radiating to the left knee with nausea; for the past 2 hours constant LLQ abdominal pain; LBM was today & wnl; denies fever, chest pain, shortness of air, dysuria, rash, trauma. Allergies/Adverse Reactions: chocolate Allergy (Intermediate, Verified 11/10/23 18:53) fluid behind eardrums milk Allergy (Intermediate, Verified 11/10/23 18:53) fluid behind eardrums Home Medications: Losartan/Hydrochlorothiazide [Losartan-Hctz 50-12.5 mg Tab] 12.5 mg PO DAILY 03/31/21 [History] Hydroxychloroquine Sulfate [Plaquenil] 200 mg PO DAILY 11/10/23 [History] Pilocarpine HCl 7.5 mg PO DAILY 11/10/23 [History] Hx Tetanus, Diphtheria Vaccination/Date Given: Yes Hx Influenza Vaccination/Date Given: Yes Hx Pneumococcal Vaccination/Date Given: Yes Immunizations Up to Date: Yes Travel Risk - International Travel Have you traveled outside of the country in past 3 weeks: No - Coronavirus Screening Are you exhibiting any of the following symptoms?: No Close contact with a COVID-19 positive Pt in past 14-21 Days: No - Vaccine Status Have you recieved a Covid-19 vaccination: Yes [employer]: [employer] - Vaccination Dates Date of 2cond Vaccination (if applicable): December2020 - Review of Systems Constitutional: No Fever Ears, Nose, & Throat: No Ear Pain, No Throat Pain Respiratory: No Dyspnea Cardiac: No Chest Pain Abdominal/Gastrointestinal: Abdominal Pain, Nausea Genitourinary Symptoms: No Dysuria Musculoskeletal: Back Pain, Other (pain of left thigh) Skin: No Rash Neurological: No Focal Weakness, No Headache - Past Medical History Pertinent Past Medical History: Yes Neurological History: No Pertinent History ENT History: No Pertinent History Cardiac History: Hypertension Respiratory History: No Pertinent History Endocrine Medical History: No Pertinent History GI Medical History: Gallbladder Disease History: Renal Disease Psycho-Social History: No Pertinent History Female Reproductive Disorders: No Pertinent History Other Medical History: auto immune. stage 3 kidney disease. - Past Surgical History Past Surgical History: Yes Neuro Surgical History: No Pertinent History Cardiac: No Pertinent History Respiratory: No Pertinent History Gastrointestinal: No Pertinent History, Appendectomy Genitourinary: No Pertinent History Musculoskeletal: Other Female Surgical History: Hysterectomy Other Surgical History: FX L arm R ankle. - Social History Smoking Status: Former smoker Exposure to second hand smoke: No Drug Use: none Patient Lives Alone: No - Nursing Vital Signs Nursing Vital Signs: Initial Vital Signs Temperature 97.1 F 11/10/23 18:46 Pulse Rate 69 11/10/23 18:46 Respiratory Rate 20 11/10/23 18:46 Blood Pressure 166/89 11/10/23 18:46 O2 Sat by Pulse Oximetry 100 11/10/23 18:46 Pain Scale Pain Intensity [] 8 Pain Intensity 3 - Physical Exam Eye Exam: PERRL/EOMI Ears, Nose, Throat Exam: TMs normal, pharynx normal, moist mucous membranes Neck Exam: normal inspection Respiratory Exam: normal breath sounds, airway intact Cardiovascular Exam: normal heart sounds Gastrointestinal Exam: soft, normal bowel sounds, tenderness (LLQ - mild) Back Exam: other (mild left lower back tenderness) Extremity Exam: normal inspection, normal range of motion, No pedal edema Peripheral Pulses: dorsalis-pedis (R): 1+, dorsalis-pedis (L): 1+ Neurologic Exam: alert, cooperative, No motor deficits Skin Exam: warm, dry SpO2 Interpretation: normal SpO2: 100 O2 Delivery: Room Air - Course Nursing assessment & vital signs reviewed: Yes - Radiology Exams Left Femur X-ray Interpretation: Interpreted by me, No Fracture - CT Exams Lumbar Spine CT Interpretation: Tele-radiologist Report (No acute osseous injury. Lumbar spondylosis with diffuse disc bulges at lower lumbar levels, most predominant at the L5-S1 level. See rest of report.) Abdomen/Pelvis CT Interpretation: Tele-radiologist Report (Redomonstration of localized mesenteric fat stranding with few subcentimetric mesenteric nodes, however the fat stranding is reduced at present study. possibility of residual/ new early onset of mesenteric panniculitis. Uncomplicated colonic diverticulosis. Stable 5 mm hypodense lesion in spleen.) Ordered Tests: Active Orders 24 hr Category Date Time Status IV Insertion STAT Care 11/10/23 20:08 Active ABDOMEN AND PELVIS W/0 CONTRAS [CT] Stat Exams 11/10/23 20:09 Completed FEMUR Stat Exams 11/10/23 20:10 Taken RECONSTRUCTION [CT] Stat Exams 11/10/23 20:10 Completed AMYLASE Stat Lab 11/10/23 20:08 Completed CBC W DIFF Stat Lab 11/10/23 20:08 Completed CMP Stat Lab 11/10/23 20:08 Completed LIPASE Stat Lab 11/10/23 20:08 Completed UA W/RFX UR CULTURE Stat Lab 11/10/23 20:08 Completed Medication Summary Generic Name Dose Route Start Last Admin Trade Name Freq PRN Reason Stop Dose Admin Sodium Chloride 1,000 mls @ 100 mls/hr 11/10/23 20:15 11/10/23 20:39 Sodium Chloride 0.9% 1000 Ml IV 12/10/23 20:14 100 mls/hr .Q10H DORIS Administration Discontinued Medications Generic Name Dose Route Start Last Admin Trade Name Freq PRN Reason Stop Dose Admin Morphine Sulfate 4 mg 11/10/23 20:08 11/10/23 20:39 Morphine Sulfate 4 Mg/Ml Injection IV 11/10/23 20:09 4 mg STAT ONE Administration Morphine Sulfate Confirm 11/10/23 20:15 Morphine Sulfate 4 Mg/Ml Injection Administered 11/10/23 20:16 Dose 4 mg .ROUTE .STK-MED ONE Ondansetron HCl 4 mg 11/10/23 20:08 11/10/23 20:39 Ondansetron Hcl 4 Mg/2 Ml Vial IV 11/10/23 20:09 4 mg STAT ONE Administration Ondansetron HCl Confirm 11/10/23 20:15 Ondansetron Hcl 4 Mg/2 Ml Vial Administered 11/10/23 20:16 Dose 4 mg .ROUTE .STK-MED ONE Lab/Rad Data: Laboratory Result Diagrams 11/10/23 20:08 11/10/23 20:08 Laboratory Results 11/10/23 11/10/23 11/10/23 Range/Units 20:08 20:08 20:08 WBC 8.9 (4.0-10.5) x10^3/uL RBC 3.93 L (4.1-5.4) x10^6/uL Hgb 12.3 (12.0-16.0) g/dL Hct 37.8 (35-47) % MCV 96.2 (78-100) fL MCH 31.3 (26-32) pg MCHC 32.5 (32-36) g/dL RDW 12.2 (11.5-14.0) % Plt Count 250 (150-450) x10^3/uL MPV 9.2 (7.5-11.0) fL Gran % 81.3 H (36.0-66.0) % Immature Gran % (Auto) 0.5 H (0.00-0.4) % Nucleat RBC Rel Count 0.0 (0.00-0.1) % Eos # (Auto) 0.03 (0-0.5) x10^3/uL Immature Gran # (Auto) 0.04 H (0.00-0.03) x10^3u/L Absolute Lymphs (auto) 1.12 (1.0-4.6) x10^3/uL Absolute Monos (auto) 0.44 (0.0-1.3) x10^3/uL Absolute Nucleated RBC 0.00 (0.00-0.01) x10^3u/L Lymphocytes % 12.6 L (24.0-44.0) % Monocytes % 5.0 (0.0-12.0) % Eosinophils % 0.3 (0.00-5.0) % Basophils % 0.3 (0.0-0.4) % Absolute Granulocytes 7.22 H (1.4-6.9) x10^3/uL Basophils # 0.03 (0-0.4) x10^3/uL Sodium 134 L (137-145) mmol/L Potassium 3.8 (3.5-5.1) mmol/L Chloride 99 (98-107) mmol/L Carbon Dioxide 28 (22-30) mmol/L Anion Gap 11.1 (5-15) MEQ/L BUN 21 H (7-17) mg/dL Creatinine 0.86 (0.52-1.04) mg/dL Estimated GFR 77.3 ML/MIN Glucose 112 H (74-106) mg/dL Calcium 9.1 (8.4-10.2) mg/dL Total Bilirubin 0.90 (0.2-1.3) mg/dL AST 28 (14-36) U/L ALT 24 (0-35) U/L Alkaline Phosphatase 66 (38-126) U/L Serum Total Protein 7.2 (6.3-8.2) g/dL Albumin 4.4 (3.5-5.0) g/dL Amylase 145 H (30-110) U/L Lipase 372 H (23-300) U/L Urine Color Yellow (Yellow) Urine Appearance Clear (Clear) Urine pH 6.5 (4.6-8.0) Ur Specific [place] 1.020 (1.005-1.030) Urine Protein Negative (Negative) Urine Glucose (UA) Negative (Negative) mg/dL Urine Ketones Negative (Negative) Urine Blood Negative (Negative) Urine Nitrite Negative (Negative) Urine Bilirubin Negative (Negative) Urine Urobilinogen 0.2 (0.2) mg/dL Ur Leukocyte Esterase Trace A (Negative) U Hyaline Cast (Auto) NONE SEEN (0-2) /LPF Urine Microscopic RBC 0-2 (0-5) /HPF Urine Microscopic WBC 3-5 (0-5) /HPF Ur Epithelial Cells None Seen (None Seen) /HPF Urine Bacteria None Seen (None Seen) /HPF Urine Culture Reflexed NO (NO) - Progress Progress: improved Counseled pt/family regarding: lab results, diagnosis, need for follow-up, rad r esults Medical Desision Making - Diagnostic Testing Diagnostic test were ordered, analyzed, and reviewed by me: Yes Radiological Interpretation: Interpreted by me, Teleradiologist Report - Departure Departure Disposition: Home Clinical Impression: Sciatica, Disc bulges of lumbar spine, LLQ abdominal pain, Elevated amylase and lipase Condition: Stable Critical Care Time: No Referrals: NICOLE FLORES NP [Primary Care Provider] - Follow up/PCP as directed Instructions: Sciatica (DC), Low Back Pain (DC), Severe Abdominal Pain, Adult (DC) Additional Instructions: Follow up with private doctor tomorrow for possible MRI of the lumbar spine. Forms: Work/School Release Form
[2023-11-10] MEDS ORDERED: MORPHINE SULFATE 4 MG INJ IV ONE (20:08)
[2023-11-10] MEDS ORDERED: Zofran 4 MG/2 ML VIAL IV ONE (20:08)
[2023-11-10] MEDS ORDERED: MORPHINE SULFATE 4 MG INJ ONE (20:15)
[2023-11-10] MEDS ORDERED: Zofran 4 MG/2 ML VIAL ONE (20:15)
[2023-11-10] MEDS ORDERED: Sodium Chloride 0.9% 1000 ML 1,000 ML ONE (20:15)
[2023-11-10] MEDS ORDERED: Sodium Chloride 0.9% 1000 ML 1,000 ML IV SCH (20:15)
[2023-11-10 20:42] LABS: Absolute Neutrophil Ct (ANC) 7.22 x10^3/uL (1.4-6.9); BASOPHIL % 0.3 % (0.0-0.4); Basophil (Absolute #) 0.03 x10^3/uL (0-0.4); Eosinophil % 0.3 % (0.00-5.0); Eosinophil (Absolute #) 0.03 x10^3/uL (0-0.5); Hematocrit 37.8 % (35-47); Hemoglobin 12.3 g/dL (12.0-16.0); IMMATURE GRAN # 0.04 x10^3u/L (0.00-0.03); IMMATURE GRAN % 0.5 % (0.00-0.4); Lymphocyte (Absolute #) 1.12 x10^3/uL (1.0-4.6); Lymphocytes % 12.6 % (24.0-44.0); Mean Cell Volume 96.2 fL (78-100); Mean Corpuscular Hemoglobin 31.3 pg (26-32); Mean Corpuscular Hgb Concent. 32.5 g/dL (32-36); Mean Platelet Volume 9.2 fL (7.5-11.0); Monocyte (Absolute #) 0.44 x10^3/uL (0.0-1.3); Neutrophil % 81.3 % (36.0-66.0); Platelet Count 250 x10^3/uL (150-450); Red Blood Count 3.93 x10^6/uL (4.1-5.4); Red Cell Distribution Width 12.2 % (11.5-14.0); White Blood Count 8.9 x10^3/uL (4.0-10.5)
[2023-11-10 20:48] LABS: Appearance Clear (Clear); Bacteria None Seen /HPF (None Seen); Bilirubin Negative (Negative); Blood Negative (Negative); Epithelial Cells None Seen /HPF (None Seen); Glucose, Urine Negative (Negative); Hyaline Casts NONE SEEN /LPF (0-2); Ketones Negative (Negative); Leukocyte Esterase Trace (Negative); Nitrite Negative (Negative); Ph 6.5 (4.6-8.0); Protein,Urine Dip Negative (Negative); RBC 0-2 /HPF (0-5); Urobilinogen 0.2 mg/dL (0.2)
[2023-11-10 20:50] LABS: ADD URINE CULTURE? NO (NO)
[2023-11-10 20:54] LABS: ALBUMIN 4.4 g/dL (3.5-5.0); ANION GAP 11.1 MEQ/L (5-15); BILIRUBIN,TOTAL 0.9 mg/dL (0.2-1.3); Calcium 9.1 mg/dL (8.4-10.2); Creatinine 1 0.86 mg/dL (0.52-1.04); EST GLOMERULAR FILTRATION RATE 77.3 ML/MIN; Potassium 3.8 mmol/L (3.5-5.1); Total Protein 7.2 g/dL (6.3-8.2)
--- NOTE | 2023-11-10 22:23 | XRAY ---
CLINICAL HISTORY: pain TECHNIQUE: CT scan of the abdomen and pelvis was performed without IV contrast. Coronal and sagittal reconstructions were also obtained. COMPARISON: Previous CT dated 12/19/2021. FINDINGS: Sections of lower thorax show mild subpleural haziness with subtle atelectasis. Abdomen: Redemonstration of localized mesenteric fat stranding with few subcentimetric mesenteric nodes noted, however the fat stranding is reduced at present study, possibility of resolving / new early onset of mesenteric panniculitis. The liver is of average size. No focal or diffuse parenchymal abnormality. The intrahepatic biliary radicals and the bile ducts are normal. The gallbladder is surgically removed. The spleen shows a small 5 mm hypodense lesion could represent splenic cyst/hemangioma, stable since previous study. The pancreas, adrenal glands are unremarkable. The kidneys are normal in size and shape. No calculi or hydronephrosis. The ascending colon, the transverse colon, the descending colon, visualized small bowel loops are unremarkable. Uncomplicated colonic diverticulosis noted. Appendix appears unremarkable. There is no evidence of significant enlargement of the mesenteric or retroperitoneal lymph nodes. The abdominal aorta shows atherosclerotic changes with calcified plaques. Pelvis: The urinary bladder is unremarkable. The uterus is surgically removed. No evidence of pelvic lymphadenopathy. The lumbar spine shows degenerative changes. IMPRESSION: 1. Redemonstration of localized mesenteric fat stranding with few subcentimetric mesenteric nodes, however the fat stranding is reduced at present study, possibility of residual / new early onset of mesenteric panniculitis. 2. Uncomplicated colonic diverticulosis. 3. Stable small 5 mm hypodense lesion in spleen. Electronically Signed by: Martha Castellano MD. (11/10/2023 22:18:56 EST)
--- NOTE | 2023-11-10 22:49 | XRAY ---
CLINICAL HISTORY: pain TECHNIQUE: CT scan of lumbar spine was performed in axial plane with coronal and sagittal reconstructed imageswithout contrast administration. COMPARISON: MRI dated 01/15/2006. FINDINGS: Preserved physiological lumbar lordosis. Multilevel anterior osteophytes noted. Bilateral facetal arthropathy seen predominant from L3-L4 to L5-S1 levels, more so on left side. Normal vertebral bodies height and alignment. No definite fractures could be detected. Marginal anterior and posterior osteophytes noted. Segmental disc analysis level by level: L1- L2: There is no significant disc herniation or neural foraminal narrowing visualized. The central canal is unremarkable. No sign of lateral recess stenosis. Nerve roots are normal. L2- L3: There is no significant disc herniation or neural foraminal narrowing visualized. The central canal is unremarkable. No sign of lateral recess stenosis. Nerve roots are normal. L3- L4: There is posterior disc bulge causing slight indentation over ventral thecal sac and narrowing of bilateral neural foramina, more so on the left side, accentuated by hypertrophic facetal arthropathy. L4- L5: There is disc bulge causing indentation over ventral thecal sac and mild to moderate narrowing of bilateral neural foramina, accentuated by bilateral facetal arthropathy. L5- S1: There is disc bulge causing indentation over ventral thecal sac and moderate narrowing of bilateral neural foramina, accentuated by bilateral facetal arthropathy. No retro paraspinal soft tissue masses. No developmental canal stenosis. IMPRESSION: 1. No acute osseous injury was detected in the lumbar spine. 2. Lumbar spondylosis with diffuse disc bulges at lower lumbar levels, most predominant at the L5-S1 level. Mild interval progression of facetal arthropathy is seen since the previous MRI study dated 01/15/2006 3. MRI is suggested for further evaluation if clinically warranted. Electronically Signed by: Martha Castellano MD. (11/10/2023 22:44:27 EST)
[2023-11-10 23:25] VITALS: O2SAT 100
[2023-11-10] MEDS ORDERED: MORPHINE SULFATE 2 MG INJ IV ONE (23:41)
[2023-11-10] MEDS ORDERED: MORPHINE SULFATE 2 MG INJ ONE (23:54)
[2023-11-11 00:14] VITALS: BP 136/66
--- NOTE | 2023-11-11 08:42 | XRAY ---
Indication: Pain. No known injury. Comparison: None 2 view left femur demonstrates osteopenia, mild/moderate tricompartmental knee degenerative changes greatest patellafemoral, and a few left pelvic surgical clips. No other bony, articular, or soft tissue abnormalities.
== END 2023-11-11 00:08 | disposition home or self-care (01) ==
LOC: ED 18:34
DX: M54.31 Sciatica, right side (principal); M51.36 Other intervertebral disc degeneration, lumbar region; R10.32 Left lower quadrant pain; R74.8 Abnormal levels of other serum enzymes; R11.0 Nausea; I12.9 Hypertensive chronic kidney disease with stage 1 through stage 4 chronic kidney disease, or unspecified chronic kidney disease; N18.30 Chronic kidney disease, stage 3 unspecified; Z79.899 Other long term (current) drug therapy
CPT/HCPCS: 36000; 36415; 73552; 74176; 76376; 80053; 81001; 82150; 83690; 85025; 96374; 96375; 99284; J2270; J2405